=== PATIENT | female | born 1995 | race African-American/Black ===

== ENCOUNTER 2022-01-13 13:09 | Emergency (ER) | payer MEDICAID, OTHER ==
[~2022-01-13] VITALS: Ht 165.1 cm; Wt 50.0 kg
[2022-01-13] MEDS ORDERED: FAMOTIDINE 20MG/2ML VIAL IV NR (14:30)
[2022-01-13] MEDS ORDERED: ONDANSETRON HCL 4MG/2ML INJ IV NR (14:30)
[2022-01-13] MEDS ORDERED: SODIUM CHLORIDE 0.9% 1,000 ML IV NR (14:30)
[2022-01-13 14:45] LABS: BASOPHILS % 0.3 % (0.0-2.0); EOSINOPHILS % 0.2 % (0.0-5.0); HEMATOCRIT. 31.8 % (36.0-48.0); HEMOGLOBIN. 10.7 g/dL (12.0-16.0); LYMPHOCYTES % 16.7 % (20.0-50.0); MEAN CORPUSCULAR HEMOGLOBIN 30.4 pg (28.0-32.0); MEAN CORPUSCULAR VOLUME 90.5 fL (81.0-99.0); MEAN PLATELET VOLUME 7.8 fl (7.4-10.4); NEUTROPHILS % 73.8 % (40.0-76.0); PLATELET 190 x1000/uL (130-400); RED BLOOD CELL COUNT 3.52 mill/uL (4.2-5.4); RED CELL DISTRIBUTION WIDTH 13.3 % (11.6-14.6)
[2022-01-13 14:53] LABS: CHLORIDE 103 mEq/L (98-107)
[2022-01-13 15:07] LABS: HCG SCREEN NEGATIVE
[2022-01-13] MEDS ORDERED: MORPHINE SULFATE 4 MG/ML CPJ (NOT FOR IM USE) IV ONE (15:45)
[2022-01-13] MEDS ORDERED: METOCLOPRAMIDE HCL 10MG/2ML VIAL IV ONE (15:45)
[2022-01-13] MEDS ORDERED: DEXAMETHASONE 4MG/ML 1ML VIAL IV ONE (15:45)
[2022-01-13 16:28] LABS: CLARITY URINE CLEAR (CLEAR); COLOR URINE YELLOW (YELLOW); KETONES URINE 4+ (NEGATIVE); LEUKOCYTE ESTERASE URINE NEGATIVE (NEGATIVE); NITRITE URINE NEGATIVE (NEGATIVE); OCCULT BLOOD URINE 2+ (NEGATIVE); PH URINE 5.5 (4.5-8.0); PROTEIN URINE 1+ (NEGATIVE); SPECIFIC GRAVITY URINE 1.024 (1.005-1.030); UROBILINOGEN URINE 0.2 E.U./dL (0.2-1.0)
[2022-01-13] MEDS ORDERED: METO-293 PO (16:41)
[2022-01-13] MEDS ORDERED: TRAM-529 MT (16:41)
[2022-01-13] MEDS ORDERED: FAMO-135 MT (16:41)
[2022-01-13 16:49] VITALS: BP 109/53
== END 2022-01-13 18:05 | disposition home or self-care (01) ==
LOC: ER 13:09
DX: K29.70 Gastritis, unspecified, without bleeding (principal)
CPT/HCPCS: 36415; 71045; 80053; 81003; 83690; 84703; 85025; 93005; 96374; 96375; 99285; J1100; J2270; J2405; J2765; J3490

== ENCOUNTER 2024-06-11 14:42 | Emergency (ER) | payer MEDICAID ==
[~2024-06-11] VITALS: Ht 165.1 cm; Wt 55.0 kg
[~2024-06-11 14:42] MED LIST: FAMO-135 MT; METO-293 PO
[2024-06-11 14:46] VITALS: O2SAT 98
[2024-06-11] MEDS: SODIUM CHLORIDE 0.9% 1,000 ML IV ONE (15:30)
[2024-06-11] MEDS: HALOPERIDOL LACTATE 5MG/ML VIAL IM ONE (15:58)
[2024-06-11] MEDS: KETOROLAC 30MG/ML VIAL IV STA (15:58)
[2024-06-11 16:19] LABS: HEMOGLOBIN. 13.7 g/dL (12.0-16.0); MEAN CORPUSCULAR HEMOGLOBIN 30.9 pg (28.0-32.0); MEAN CORPUSCULAR HGB CONC 32.5 g/dL (31.0-37.0); MEAN CORPUSCULAR VOLUME 94.9 fL (81.0-99.0); MEAN PLATELET VOLUME 7.9 fl (7.4-10.4); PLATELET 237 x1000/uL (130-400); RED BLOOD CELL COUNT 4.43 mill/uL (4.2-5.4); RED CELL DISTRIBUTION WIDTH 14.3 % (11.6-14.6); WHITE BLOOD COUNT 15.6 x1000/uL (4.5-11.0)
[2024-06-11 16:20] LABS: DIFFERENTIAL COMMENT 1
[2024-06-11 17:00] LABS: PLATELET ESTIMATE NORMAL
[2024-06-11 17:32] LABS: CHLORIDE 103 mEq/L (98-107); POTASSIUM 3.1 mEq/L (3.5-5.1); SODIUM 138 mEq/L (136-145)
[2024-06-11 17:34] LABS: CARBON DIOXIDE 20 mEq/L (21-32)
[2024-06-11 17:36] LABS: HCG SCREEN NEGATIVE
[2024-06-11 17:39] LABS: GLUCOSE 165 mg/dL (70-105); UREA NITROGEN BLOOD 11 mg/dL (9-23)
[2024-06-11 17:41] LABS: ALANINE AMINOTRANSFERASE 18 IU/L (10-49); ALBUMIN 4.8 g/dL (3.2-4.8); ASPARTATE AMINOTRANSFERASE 29 IU/L (<34)
[2024-06-11 17:42] LABS: PROTEIN TOTAL 7.7 g/dL (6.0-8.3)
[2024-06-11] MEDS: POTASSIUM CHLORIDE 20MEQ TABLET SR PO ONE (18:30)
[2024-06-11] MEDS: TAMSULOSIN HCL 0.4MG SR CAPSULE PO ONE (19:30)
[2024-06-11] MEDS ORDERED: TAMS-11 MT (20:32)
[2024-06-11] MEDS ORDERED: FAMO-135 MT (20:32)
[2024-06-11] MEDS: METOCLOPRAMIDE HCL 10MG/2ML VIAL IV ONE (21:05)
[2024-06-11] MEDS: FAMOTIDINE 20MG/2ML VIAL IV ONE (21:05)
[2024-06-11] MEDS ORDERED: HYDR-4001 MT (22:07)
[2024-06-11 22:10] LABS: CLARITY URINE CLEAR (CLEAR); COLOR URINE YELLOW (YELLOW); GLUCOSE URINE NEGATIVE (NEGATIVE); KETONES URINE 4+ (NEGATIVE); LEUKOCYTE ESTERASE URINE NEGATIVE (NEGATIVE); NITRITE URINE NEGATIVE (NEGATIVE); OCCULT BLOOD URINE NEGATIVE (NEGATIVE); PH URINE 7.5 (4.5-8.0); PROTEIN URINE 1+ (NEGATIVE); SPECIFIC GRAVITY URINE 1.024 (1.005-1.030); UROBILINOGEN URINE 0.2 E.U./dL (0.2-1.0)
[2024-06-11 22:32] LABS: BACTERIA URINE 2+; RBC URINE 0-2 /hpf (0-2); SQUAMOUS EPITHELIAL CELL URINE 1+ /lpf (RARE/1+); WBC URINE 0-2 /hpf (0-2)
[2024-06-11] MEDS ORDERED: ONDANSETRON 4MG ODT PO PRN (22:45)
[2024-06-11 23:22] VITALS: BP 108/64; PULSE 64; RESP 16; TEMP 98.4
== END 2024-06-11 23:25 | disposition home or self-care (01) ==
LOC: ER 14:57
DX: R10.84 Generalized abdominal pain (principal); R11.2 Nausea with vomiting, unspecified; N20.1 Calculus of ureter; K21.9 Gastro-esophageal reflux disease without esophagitis; Z79.899 Other long term (current) drug therapy
CPT/HCPCS: 80053; 81003; 84703; 83690; 85025; 36415; 74176; 96361; 96372; 96374; 96375; 99285; J3490; J1630; J1885; J2765; J7030; Z7610 ×4